=== PATIENT | female | born 1980 | race African-American/Black ===

== ENCOUNTER 2017-11-02 08:25 | Emergency (ER) | payer MEDICAID ==
[2017-11-02 08:59] LABS: BASOPHILS 0 % (0-2); HEMATOCRIT 36.1 % (36.0-48.0); HEMOGLOBIN 12.5 g/dL (12-16); IMMATURE GRANULOCYTES 0.3 % (0-5); MCHC 34.6 g/dL (31.0-37.0); MCV 80.9 fL (80.0-100.0); MEAN PLATELET VOLUME 10.4 fL (7.4-10.4); MONOCYTES 11.6 % (2-11); NEUTROPHILS 66.1 % (40-80); PLATELET COUNT 380 10x3/uL (130-400); RBC 4.46 10x6/uL (4.00-5.40); RDW 15.2 % (11.5-14.5); WBC 9.8 10x3/uL (4.8-10.8)
[2017-11-02 09:06] LABS: INR 1.06 (0.85-1.17); PROTIME 13.4 SECONDS (11.6-15.0)
[2017-11-02 09:07] LABS: APTT 28.7 SECONDS (22.8-39.4)
[2017-11-02 09:08] LABS: D-DIMER-QUANTITATIVE 1.1 ug/mLFEU (0.20-0.54)
[2017-11-02 09:21] LABS: ALBUMIN 3.4 g/dL (3.4-5.0); ALKALINE PHOSPHATASE 54 U/L (46-116); ALT (SGPT) 19 U/L (10-68); BILIRUBIN - TOTAL 0.81 mg/dL (0.2-1.3); CALC OSMOLALITY 269 mosm/kg (275-300); CALCIUM 9.5 mg/dL (8.5-10.1); CARBON DIOXIDE 22.7 mmol/L (21.0-32.0); CHLORIDE - SERUM 102 mmol/L (98-107); CREATININE - SERUM 0.9 mg/dL (0.6-1.3); GLUCOSE 102 mg/dL (74-106); POTASSIUM - SERUM 3.5 mmol/L (3.5-5.1); PROTEIN - SERUM 8.6 g/dL (6.4-8.2); SODIUM 136 mmol/L (136-145); UREA NITROGEN 8 mg/dL (7-18); eGFR NON AFRICAN AMERICAN 74 mL/min (90-120)
[2017-11-02 09:30] LABS: CREATINE KINASE 46 UL (21-215)
[2017-11-02 09:32] LABS: TROPONIN-I < 0.017 ng/mL (0.000-0.060)
== END 2017-11-02 12:55 | disposition home or self-care (01) ==
LOC: D.ER 08:25
PROVIDERS: Family Medicine
DX: J18.9 Pneumonia, unspecified organism (principal); M79.1 Myalgia; F17.200 Nicotine dependence, unspecified, uncomplicated